=== PATIENT | male | born 1955 | race Caucasian/White ===

== ENCOUNTER → 2020-01-24 | Outpatient (CLI) | payer MEDICARE, OTHER ==
[~2020-01-24] MED LIST: AMBIEN 5MG TABLE5 MG PO; DAZIDOX10 MG PO; SENOKOT8.6 MG PO; SYNTHROID0.075 MG/T PO; XARELTO10 MG PO; [UNRECOGNIZED DRUG - OTHER]
== END ==
LOC: COL.RAD 09:43
DX: E87.2 Acidosis (principal); R16.0 Hepatomegaly, not elsewhere classified

== ENCOUNTER → 2020-01-30 | Outpatient (CLI) | payer MEDICARE, OTHER | LOC: COL.RAD 07:01 | DX: R16.0 Hepatomegaly, not elsewhere classified (principal); Z87.448 Personal history of other diseases of urinary system | CPT/HCPCS: Q9967 ==

== ENCOUNTER → 2020-02-14 | Outpatient (CLI) | payer MEDICARE, OTHER ==
[~2020-02-14] VITALS: Ht 172.7 cm; Wt 80.0 kg
[2020-02-14] VITALS (10 sets, daily range): BP systolic 131–175; BP diastolic 77–87; PULSE 45–56
[~2020-02-14] MED LIST changes: +BENICAR40 MG PO; +PERCOCET 325 MG1 TAB PO; +SYNTHROID0.1 MG/TAB PO
--- NOTE | 2020-02-14 09:50 | NUR ---
Patient in CT scanner, Dr Pfeiffer here talked with pt and procedure started
--- NOTE | 2020-02-14 10:00 | NUR ---
iIV fentanyl 50mcg given as ordered, then versed 1mg IV given as ordered, liver mass obtained and put in formulin. bandaid over site, scan done
--- NOTE | 2020-02-14 10:05 | NUR ---
pt assisted to w/c, no c/o
== END ==
LOC: COL.RAD 08:45
DX: R16.0 Hepatomegaly, not elsewhere classified (principal)
CPT/HCPCS: J2250; J3010

== ENCOUNTER 2020-04-22 16:56 | Emergency (ER) | payer MEDICARE, OTHER ==
[~2020-04-22] VITALS: Ht 172.7 cm; Wt 77.3 kg
[2020-04-22 17:26] VITALS: TEMP 98.5
[2020-04-22 19:34] LABS: COLLECTION METHOD CLEAN CATCH
[2020-04-22 19:42] LABS: MUCOUS Present /lpf; PH 6 (5-8); SQUAMOUS EPITHELIAL None Seen /hpf; URINE APPEARANCE Clear; URINE BACTERIA None Seen /hpf; URINE BILIRUBIN Negative (NEGATIVE); URINE BLOOD 1+ (NEGATIVE); URINE COLOR Yellow; URINE GLUCOSE Negative (NEGATIVE); URINE KETONE Negative (NEGATIVE); URINE LEUKOCYTE ESTERASE Negative (NEGATIVE); URINE NITRATE Negative (NEGATIVE); URINE PROTEIN(semi-quant) Negative (NEGATIVE); URINE RBC 0-2 /hpf; URINE WBC 0-2 /hpf
[2020-04-22 19:46] LABS: BASO % 0.4 % (0.0-2.0); EOS # 0.1 (0.0-0.7); EOS % 1.2 % (0-4.0); GRAN % 75.1 % (42.2-75.2); HEMATOCRIT 38.8 % (42.0-52.0); HEMOGLOBIN 12.8 g/dl (13.5-18.0); LYMPH % 14.8 % (20.0-51.0); MEAN CELL VOLUME 88 fl (80.0-100.0); MEAN CORPUSCULAR HEMOGLOBIN 29 pg (27.0-31.0); MEAN CORPUSCULAR HGB CONC 33 g/dl (33.0-37.0); MEAN PLATELET VOLUME 9.6 fl (7.4-10.4); MONO # 0.6 (0.1-0.6); MONO % 8.4 % (1.7-9.3); PLATELET COUNT 180 K/mm3 (130-400); RED BLOOD COUNT 4.43 M/mm3 (4.20-5.60); REDCELL DISTRIBUTION WIDTH-CV 13.2 % (11.5-14.5)
[2020-04-22 19:51] LABS: INR 1.2 (0.8-3.0); PROTHROMBIN TIME 12.9 SECONDS (9.7-12.8)
[2020-04-22 19:54] LABS: PARTIAL THROMBOPLASTIN TIME 31.2 SECONDS (26.0-37.0)
[2020-04-22 19:57] LABS: BILIRUBIN,TOTAL 0.7 mg/dL (0.0-1.0); CALCIUM 9.4 mg/dL (8.4-10.2); CREATININE, serum 0.75 (0.66-1.25); POTASSIUM 4.2 mmol/L (3.4-5.0); TOTAL PROTEIN 7.6 gm/dL (6.4-8.2)
[2020-04-22 20:45] VITALS: BP 150/81; PULSE 61
== END 2020-04-22 20:46 | disposition home or self-care (01) ==
LOC: COL.ER 16:56
PROVIDERS: Emergency Medicine
DX: C22.0 Liver cell carcinoma (principal); Z88.5 Allergy status to narcotic agent; Z88.6 Allergy status to analgesic agent
CPT/HCPCS: J7030

== ENCOUNTER 2020-08-30 18:14 | Emergency (ER) | payer MEDICARE, OTHER ==
[~2020-08-30] VITALS: Ht 172.7 cm; Wt 72.7 kg
[2020-08-30 19:20] LABS: BASO % 0.4 % (0.0-2.0); EOS # 0.1 (0.0-0.7); EOS % 1.2 % (0-4.0); GRAN % 75.1 % (42.2-75.2); HEMOGLOBIN 10.1 g/dl (13.5-18.0); LYMPH # 0.9 (1.2-3.4); MEAN CELL VOLUME 95 fl (80.0-100.0); MEAN CORPUSCULAR HEMOGLOBIN 31 pg (27.0-31.0); MEAN CORPUSCULAR HGB CONC 33 g/dl (33.0-37.0); MEAN PLATELET VOLUME 10.9 fl (7.4-10.4); MONO # 0.7 (0.1-0.6); MONO % 9.7 % (1.7-9.3); PLATELET COUNT 140 K/mm3 (130-400); RED BLOOD COUNT 3.24 M/mm3 (4.20-5.60); REDCELL DISTRIBUTION WIDTH-CV 18.1 % (11.5-14.5)
[2020-08-30 19:24] LABS: HEMATOCRIT 30.9 % (42.0-52.0)
[2020-08-30 19:30] LABS: LACTIC ACID 1.4 mmol/L (0.4-2.0)
[2020-08-30 19:31] LABS: ALBUMIN 2.8 gm/dL (3.5-5.0); BILIRUBIN,TOTAL 9.2 mg/dL (0.0-1.0); CALCIUM 8.9 mg/dL (8.4-10.2); CREATININE, serum 0.84 (0.66-1.25); POTASSIUM 4.8 mmol/L (3.4-5.0); TOTAL PROTEIN 7.2 gm/dL (6.4-8.2)
[2020-08-30 19:49] LABS: COLLECTION METHOD CLEAN CATCH
[2020-08-30 19:57] LABS: MUCOUS Present /lpf; PH 5 (5-8); SQUAMOUS EPITHELIAL 0-2 /hpf; URINE APPEARANCE Hazy; URINE BACTERIA Rare /hpf; URINE BILIRUBIN Positive (NEGATIVE); URINE BLOOD Negative (NEGATIVE); URINE COLOR Amber; URINE GLUCOSE Negative (NEGATIVE); URINE KETONE Negative (NEGATIVE); URINE LEUKOCYTE ESTERASE Negative (NEGATIVE); URINE NITRATE Negative (NEGATIVE); URINE PROTEIN(semi-quant) Negative (NEGATIVE); URINE RBC 0-2 /hpf; URINE UROBILINOGEN >=4.0 mg/dL (NEGATIVE)
[2020-08-30] MEDS ORDERED: LEVAQUIN 750MG750 M1 PO (23:01)
[2020-08-30 23:41] VITALS: BP 122/74; PULSE 66; TEMP 98.3
== END 2020-08-30 23:41 | disposition home or self-care (01) ==
LOC: COL.ER 18:14
PROVIDERS: Family Medicine
DX: R06.02 Shortness of breath (principal); C22.0 Liver cell carcinoma; Z20.822 Contact with and (suspected) exposure to COVID-19
CPT/HCPCS: J7030; J7120